=== PATIENT | male | born 1995 | race Caucasian/White ===

== ENCOUNTER 2017-08-30 18:27 | Emergency (ER) | payer OTHER ==
[2017-08-30 18:37] VITALS: BP 120/90; PULSE 61; RESP 18; TEMP 98.6; O2SAT 98
[2017-08-30] MEDS ORDERED: HYDROCOD/APAP 5/325 PREPACK#6 BTL TAKEHOME ONE (19:38)
--- NOTE | 2017-08-30 19:44 | EDPHY ---
General - History Smoking Status: Current every day smoker Narrative: CHIEF COMPLAINT: Hemorrhoid pain HISTORY OF PRESENT ILLNESS: Patient complains of 4-5 day history of hemorrhoid pain. He has an external hemorrhoid and has a history of this. It is moderately to severely painful. Worse with palpation or movement. No bleeding. No constipation or diarrhea. No fever chills. No abdominal pain. He is here to have it removed. He has not had this done before. He is originally from [place]. He goes to the [facility]. No other associated complaints or modifying factors. REVIEW OF SYSTEMS: Ten systems reviewed and are negative unless otherwise noted in the HPI PCP: [facility] SPECIALISTS: None PAST MEDICAL HISTORY: Hemorrhoids PAST SURGICAL HISTORY: None SOCIAL HISTORY: Nonsmoker. 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 Originally from [place] FAMILY HISTORY: Noncontributory EXAMINATION General Appearance: Alert, no distress Eyes: Pupils equal and round, no conjunctival pallor or injection ENT, Mouth: Mucous membranes moist Respiratory: No retractions or distress. Gastrointestinal: Abdomen is soft and nontender. Rectal exam: Female RN present. There is a 1.5 cm external hemorrhoid on the right side. No bleeding. No thrombosis. No signs of infection. Rectal exam deferred due to pain. No evidence of perirectal or perianal abscess Skin: Grossly intact for warm and dry. No rash. No signs of cellulitis. Extremities: Nontender, no pedal edema Psychiatric: Mood and affect normal DIFFERENTIAL DIAGNOSES: Including but not limited to external hemorrhoid, thrombosed hemorrhoid, bleeding hemorrhoid, infected hemorrhoid, internal hemorrhoid MDM: 7:35 p.m. Right-sided external hemorrhoid without thrombosis, bleeding or infection. Rectal exam deferred due to pain. Vitals are all within normal limits. I will discharge patient home with [place] for his cough and his hemorrhoid pain. Prescription for rectal suppositories, [id number] Delsym and tucks pad. Continue with Sitz bath. Recommend MiraLax and/or Colace. Increase fluid intake. Increase fiber intake. Referral to GI for definitive care. ED precautions for worsening pain, thrombosis, bleeding. He is comfortable this plan and discharged home stable condition. (Abdiaziz Martines) The patient was evaluated and managed by the physician chef's assistant. I have reviewed this chart and I agree with the findings and plan of care as documented , as indicated by my signature. I am the secondary supervising physician. ( Celeste Dave) - Objective Vital Signs: Initial Vital Signs Temperature (C) 37 C 08/30/17 18:33 Heart Rate 61 08/30/17 18:33 Respiratory Rate 18 08/30/17 18:33 Blood Pressure 120/90 H 08/30/17 18:33 O2 Sat (%) 98 08/30/17 18:33 O2 Delivery Mode Room Air Allergies/Adverse Reactions: No Known Allergies Allergy (Unverified 08/30/17 18:33) Home Medications: Medication Instructions Recorded Dextromethorphan Polistirex 30 mg PO BID #120 charla.er.12h 08/30/17 [Delsym] Hydrocortisone Acetate [Anucort-Hc] 25 mg RC TID #12 supp.rect 08/30/17 Medications Given: Discontinued Medications Hydrocodone Bitart/Acetaminophen ([place] 5/325mg Prepack#6) 1 btl TAKEHOME EDNOW ONE Stop: 08/30/17 19:39 Last Admin: 08/30/17 19:49 Dose: 1 btl Departure - Departure Disposition: Home, Routine, Self-Care Clinical Impression: External hemorrhoids without complication, Cough Condition: Good Instructions: Hydrocodone/Acetaminophen (By mouth), Dextromethorphan (By mouth) , Antitussives (By mouth), Hydrocortisone (Into the rectum), Astringent (On the skin), Hemorrhoids (ED) Additional Instructions: 1. Medications as prescribed to completion 2. Follow up with GI physician for definitive care 3. Recommend Delsym [id number] twice daily 4. Recommend MiraLax 1 packet once daily 5. Recommend Colace 1 pill twice daily 6. Recommend increase fiber and water intake 7. ED precautions as discussed Referrals: NONE *PRIMARY CARE P,. [Primary Care Provider] - As per Instructions [facility] [Clinic] - As per Instructions Joshua Snowden [place] [place] - As per Instructions Prescriptions: Dextromethorphan Polistirex [Delsym] 30 mg PO BID #120 chalra.er.12h Hydrocortisone Acetate [Anucort-Hc] 25 mg RC TID #12 supp.rect
== END 2017-08-30 20:00 | disposition home or self-care (01) ==
DX: K64.4 Residual hemorrhoidal skin tags (principal); R05 Cough; F17.200 Nicotine dependence, unspecified, uncomplicated